=== PATIENT | female | born 1965 ===

== ENCOUNTER 2021-11-03 10:45 | Inpatient (IN) | payer OTHER ==
[~2021-11-03] VITALS: Ht 167.6 cm; Wt 56.7 kg
[2021-11-03] MEDS ORDERED: SYNTHROID50 MCG PO (13:38)
[2021-11-08] MEDS ORDERED: PANTOPRAZOLE SO40 MG (09:00)
[2021-11-08] MEDS ORDERED: MEGESTROL ACETA20 MG (09:00)
[2021-11-08] MEDS ORDERED: INTESTINEX680 M1 (09:00)
== END 2021-11-09 08:21 | disposition home or self-care (01) | DRG 743 ==
LOC: O/R 11-08 06:20 → OB/GYN 11-08 07:00 → SURH 11-08 10:45 → OB/GYN 11-08 10:45
PROVIDERS: ADMIT Obstetrics & Gynecology Gynecology; ATTEND Obstetrics & Gynecology Gynecology
PROC: 0UT74ZZ Resection of Bilateral Fallopian Tubes, Percutaneous Endoscopic Approach (ICD-10-PCS; 2021-11-08)
PROC: 0UT94ZZ Resection of Uterus, Percutaneous Endoscopic Approach (ICD-10-PCS; principal; 2021-11-08 07:00)
DX: N80.0 Endometriosis of uterus (principal); N84.0 Polyp of corpus uteri; Z20.822 Contact with and (suspected) exposure to COVID-19; N80.2 Endometriosis of fallopian tube